=== PATIENT | male | born 1950 | race Caucasian/White ===

== ENCOUNTER 2022-01-13 09:35 | Emergency (ER) | payer OTHER | END 2022-01-13 13:05 | disposition home or self-care (01) | LOC: FER 09:35 | DX: S81.012A Laceration without foreign body, left knee, initial encounter (principal); Z23 Encounter for immunization; W29.3XXA Contact with powered garden and outdoor hand tools and machinery, initial encounter | CPT/HCPCS: 90471; 90715 ==